=== PATIENT | female | born 1945 | race Caucasian/White ===

== ENCOUNTER 2016-07-20 06:01 | Inpatient (IN) | payer MEDICARE, OTHER ==
[2016-07-18 11:22] LABS: WBC (NOT ORDERED) (RFLEX) 0 (0-5)
[2016-07-18 12:03] LABS: BASOPHILS 0.4 %; BASOPHILS ABSOLUTE 0.03 10/3/uL (0.0-0.16); EOSINOPHILS 1.7 %; EOSINOPHILS ABSOLUTE 0.14 10/3/uL (0.0-0.53); HEMATOCRIT 41.3 % (36.0-48.0); HEMOGLOBIN 14.5 g/dL (12.0-16.0); IMMATURE GRANULOCYTES 0.2 %; IMMATURE GRANULOCYTES ABSOLUTE 0.02 10/3/uL (0.0-0.11); LYMPHOCYTES 20.4 %; LYMPHOCYTES ABSOLUTE 1.65 10/3/uL (0.67-4.30); MEAN CORPUS HGB CONC 35.1 g/dL (32.0-36.0); MEAN CORPUSCULAR HEMOGLOB 28.3 pg (26.0-34.0); MEAN CORPUSCULAR VOLUME 80.5 fL (80-100); MEAN PLATELET VOLUME 10.9 fL (9.2-13.0); MONOCYTES 7.2 %; MONOCYTES ABSOLUTE 0.58 10/3/uL (0.21-1.20); NEUTROPHILS 70.1 %; NEUTROPHILS ABSOLUTE 5.65 10/3/uL (2.02-8.40); PLATELET COUNT 223 10/3/uL (150-400); RBC DISTRIBUTION WIDTH 13.8 % (12.0-16.0); RED CELL COUNT 5.13 10/6/uL (4.0-5.6); WHITE BLOOD CELLS 8.1 10/3/uL (4.5-10.5)
[2016-07-18 12:04] LABS: MANUAL DIFF NO %
[2016-07-18 12:09] LABS: INTERNATIONAL NORMAL RATI 0.9 UNITS (-); PROTIME (NOT ORD) 12.5 SEC (12.0-14.5)
[2016-07-18 12:19] LABS: A/G RATIO 1.1 (0.7-1.9); ALBUMIN 3.6 G/DL (3.5-5.0); BUN (BLOOD UREA NITROGEN) 21 MG/DL (6-23); CALCIUM, SERUM 9.1 MG/DL (8.5-10.4); CHLORIDE, SERUM 98 MMOL/L (96-112); CO2 (CARBON DIOXIDE) 34 MMOL/L (24-34); GFR AFRICAN AMERICAN 67 ML/MIN (>=60); GFR NON AFRICAN AMERICAN 57 ML/MIN (>=60); GLOBULIN 3.3 G/DL (2.5-4.1); GLUCOSE, SERUM 167 MG/DL (60-99); SGOT(AST) 37 U/L (5-40); SGPT(ALT) 67 U/L (5-65); SODIUM, SERUM 139 MMOL/L (135-148); TOTAL BILIRUBIN 0.5 MG/DL (0-1.2); TOTAL PROTEIN 6.9 G/DL (6.0-8.5)
[2016-07-18 12:25] LABS: ALKALINE PHOSPHATASE 129 U/L (45-117)
[2016-07-18 13:53] LABS: ASCORBIC ACID (UR NOT ORDER) NEG (NEG); BILIRUBIN, URINE NEGATIVE (NEG); KETONE, URINE NEGATIVE (NEG); LEUKOCYTE ESTERASE(NOT OR NEG (NEG)
--- NOTE | ~2016-07-20 | HP ---
History And Physical [facility] [address] [place]. [address] NAME: VIRGILIO ANDRADE : 47 STATUS : DIS IN PAT#: [id number] AGE: 70 ADM/REG DATE : 07/20/16 MR#: [id number] REPORT SERV DATE: 09/27/16 DICTATED BY: MAURICE MORALES DATE: 09/27/16 REPORT STATUS : Draft TRANSCRIBED BY: MODL DATE: 09/27/16 DATE OF ADMISSION: 07/20/2016 HISTORY OF PRESENT ILLNESS: Ms. Andrade is a 70-year-old patient who has been referred by Dr. Duncan Cortez with a diagnosis of right upper lobe lung cancer, biopsy-proven to be adenocarcinoma. The patient had a history of breast cancer in the past and had bilateral mastectomies, which she had never had any radiation therapy. She did have chemotherapy after first mastectomy in 1998. She is now followed by Dr. Cortez with COPD and she was found to have biopsy-proven adenocarcinoma of the right upper lobe. Her pulmonary function testing had been adequate to tolerate upper lobectomy. The patient had a cardiac workup by Dr. Tang, and she did show no signs of any coronary artery disease. By the way, her FEV1 is 2.2. PAST MEDICAL HISTORY: Significant for that listed in the history of present illness. She had no previous open cardiac or thoracic surgery. She had history of hypertension, diabetes mellitus, hyperlipidemia. FAMILY HISTORY: Her family history was negative for any history of lung cancer. SOCIAL HISTORY: Negative for tobacco or ethanol use. REVIEW OF SYSTEMS: Significant only for those listed in the history of present illness. PHYSICAL EXAMINATION: VITAL SIGNS: The patient is afebrile. Blood pressure 160/90, heart rate 75, and oxygen saturation is 96% on room air. She is 68 inches tall and 208 pounds in weight. GENERAL: She was in no acute distress. Normal constitution. Alert, oriented x3. NEUROLOGICAL: Intact. NECK: No bruits noted in her neck. No adenopathy of the neck. CHEST: Had breath sounds bilaterally without obvious wheeze or rale. She had regular rhythm. No murmur noted. She had bilateral mastectomy scar, which are well healed. She had mild edema in her left upper extremity. Her abdomen is soft, nontender without masses. EXTREMITIES: Warm and dry. : Normal examination. SKIN: Showed no obvious rash. IMAGING: The CT scan of the chest by my examination demonstrated right upper lobe lung mass, spiculated, consistent with carcinoma. She had no obvious abnormal adenopathy in the mediastinum. She had no other abnormalities of her other lung vizcaino. IMPRESSION: At this time is adenocarcinoma of the right upper lobe of the lung, and the plan is to proceed with right thoracotomy, right upper lobectomy with mediastinal lymphadenectomy. History And Physical [address] [address] NAME: VIRGILIO ANDRADE : 47 STATUS : DIS IN PAT#: [id number] AGE: 70 ADM/REG DATE : 07/20/16 MR#: [id number] REPORT SERV DATE: 09/27/16 DICTATED BY: MAURICE MORALES DATE: 09/27/16 REPORT STATUS : Draft TRANSCRIBED BY: SORAYA DATE: 09/27/16 SIRI/SORAYA Maurice Morales M.D. / [id number] CC: Coby Garcia M.D.
--- NOTE | ~2016-07-20 | CN ---
Consultation Report [facility] [address] [place]. [address] NAME: VIRGILIO ANDRADE : 47 STATUS : ADM IN PAT#: [id number] AGE: 70 ADM/REG DATE : 07/20/16 MR#: [id number] REPORT SERV DATE: 07/24/16 DICTATED BY: WU CASILLAS DATE: 07/24/16 REPORT STATUS : Draft TRANSCRIBED BY: MODL DATE: 07/24/16 CARDIOLOGY CONSULTATION DATE OF CONSULTATION: 07/24/2016 REASON FOR CONSULTATION: Atrial fibrillation. HISTORY OF PRESENT ILLNESS: Ms. Andrade is a pleasant 70-year-old woman recently diagnosed with a right upper lobe lung CA. She underwent a right upper lobe resection by Dr. Maurice Morales. Prior to her undergoing surgery, she had a cardiac workup performed by Dr. Tang, which showed cardiac structure and function to be normal. She had no history of coronary artery disease. She has no history of atrial fibrillation or any other arrhythmias. The surgery was performed on 07/20, and today, she suddenly went into atrial fibrillation with rapid ventricular response. The patient was started on IV Cardizem. Her rate is being well controlled. PAST MEDICAL HISTORY: Notable for diabetes; hypertension; right upper lobe lung CA, status post right upper lobe resection on this admission. HOME MEDICATIONS: Include amlodipine, albuterol, Bumex, Nexium, Amaryl, lisinopril, metformin, Lopressor, potassium, Requip. FAMILY HISTORY: Noncontributory. Negative for premature coronary artery disease or sudden cardiac . SOCIAL HISTORY: Tobacco abuse. Negative for alcohol. REVIEW OF SYSTEMS: As noted above. All other systems reviewed and negative. PHYSICAL EXAMINATION: VITAL SIGNS: Blood pressure of 128/60; pulse in the 90s in atrial fibrillation on Cardizem, rate previously was 130 beats per minute; respirations 18. GENERAL: Well developed, well nourished. HEENT: No icterus. Good dentition. NECK: Supple. No masses or thyromegaly LUNGS: Decreased lung sounds at the right apex. COR: Irregularly irregular rhythm. ABD: Soft, nondistended, nontender, no hepatosplenomegaly. EXT: No clubbing, cyanosis or edema. Peripheral pulses 2+/=bilaterally. SKIN: Warm and dry. No visible lesions. MS: Chest wall without deformity, no obvious clavicular fractures. NEURO/PSYCH: Oriented X3. No anxiety or depression. Consultation Report [facility] [id number] [facility] [address] NAME: VIRGILIO ANDRADE : 47 STATUS : ADM IN PAT#: [id number] AGE: 70 ADM/REG DATE : 07/20/16 MR#: [id number] REPORT SERV DATE: 07/24/16 DICTATED BY: WU CASILLAS DATE: 07/24/16 REPORT STATUS : Draft TRANSCRIBED BY: SORAYA DATE: 07/24/16 IMPRESSION: The patient with new onset atrial fibrillation occurring in the setting of lung cancer, status post resection. She is under some stress due to pain associated with the chest tube. She has a lingering pneumothorax. I would recommend that she begin on intravenous heparin. We can discontinue it to pull the chest tube and then restart a novel anticoagulant after the chest tube has been pulled. I would additionally recommend that we begin an antiarrhythmic agent as I feel she has a very high risk of recurrence of atrial fibrillation if she were to undergo cardioversion. I have recommended sotalol 80 mg twice a day. We will lower her metoprolol dose from 100 mg twice a day to 50 mg twice a day. Her renal function is normal. Her underlying sinus rates are in the 65-80 beat per minute range, so she would appear to be able to take a starting dose of sotalol. If she remains in atrial fibrillation by approximately two days, then I would recommend cardioversion to sinus rhythm. As we are starting intravenous heparin within a few hours of the onset of atrial fibrillation, I believe it would be reasonable to proceed with cardioversion without transesophageal echocardiogram. Once she is back in sinus rhythm, we will check an EKG to measure her QT interval in relation to the sotalol administration. JUAN MANUEL/SORAYA Wu Casillas M.D. / [id number] CC: Coby Garcia M.D.
--- NOTE | ~2016-07-20 | DS ---
Discharge Summary [facility] [address] [place]. [address] NAME: VIRGILIO NGUYEN : 47 STATUS : DIS IN PAT#: [id number] AGE: 70 ADM/REG DATE : 07/20/16 MR#: [id number] REPORT SERV DATE: 09/28/16 DICTATED BY: MAURICE MORALES DATE: 09/27/16 REPORT STATUS : Draft TRANSCRIBED BY: MODL DATE: 09/27/16 ADMISSION DATE: 07/20/2016 DISCHARGE DATE: 07/27/2016 PERTINENT HISTORY AND HOSPITAL COURSE: The patient is a 70-year-old female, followed closely by Dr. Luzmaria Cortez for her pulmonary diseases, was found to have a right upper lobe lung mass. A CT directed biopsy was performed, which was consistent with adenocarcinoma of the right upper lobe. The patient was referred for right upper lobectomy. Her past history was significant for a mastectomy on the left side in 1998. She has had cardiac evaluation by her clinical pharmacy coordinator and had been cleared for her lobectomy. She was admitted to the hospital and taken to the operating room on the date of 07/20/2016, at which time, she underwent right thoracotomy for right upper lobectomy with mediastinal lymphadenectomy. She tolerated the procedure well. Two chest tubes were placed and she was taken to the intensive care unit. In the intensive care unit, she was watched closely. She had been extubated in the recovery room. She did have a history of COPD and required Pulmonary followup and treatment due to her severe COPD after lobectomy. Slowly, she was able to have her chest tubes removed. She began slowly increasing p.o. intake and ambulation. She had ups and downs with respect to her COPD, oxygenation, and bronchospasms. She did not have any cardiac issues. She did not have really any surgical issues, it clearly was a prolonged hospitalization due to her weak pulmonary function. She did, however, eventually heal her wound. She was able to be stabilized at the ICU and onto the telemetry floor, and after a prolonged course, she was able to be discharged out of the hospital. At that time, she was still on multiple bronchodilators and oxygen supplementation. DISCHARGE DIAGNOSIS: Adenocarcinoma, right upper lobe of lung. OPERATIVE PROCEDURE PERFORMED: Right upper lobectomy with mediastinal lymphadenectomy via thoracotomy. Other complicating factors were hypertension, hyperlipidemia, chronic obstructive pulmonary disease, diabetes mellitus. Her followup instruction will be to see us and three weeks postoperatively see Dr. Cortez and two weeks postoperatively followed closely with her clinical pharmacy coordinator, Dr. Tang. SIRI/SORAYA Maurice Morales M.D. / [id number] CC: Maurice Morales M.D. Discharge Summary [address] [address] NAME: VIRGILIO NGUYEN : 47 STATUS : DIS IN PAT#: [id number] AGE: 70 ADM/REG DATE : 07/20/16 MR#: [id number] REPORT SERV DATE: 09/28/16 DICTATED BY: MAURICE MORALES DATE: 09/27/16 REPORT STATUS : Draft TRANSCRIBED BY: SORAYA DATE: 09/27/16 Asia Sanderson M.D.
--- NOTE | ~2016-07-20 | OP ---
Record Of Operation [facility] [address] [place]. [address] NAME: VIRGILIO NGUYEN : 47 STATUS : ADM IN PAT#: [id number] AGE: 70 ADM/REG DATE : 07/20/16 MR#: [id number] REPORT SERV DATE: 07/20/16 DICTATED BY: MAURICE MORALES DATE: 07/20/16 REPORT STATUS : Draft TRANSCRIBED BY: MODL DATE: 07/20/16 DATE OF PROCEDURE: 07/20/2016 PREOPERATIVE DIAGNOSIS: Carcinoma of right upper lobe of the lung, biopsy-proven. POSTOPERATIVE DIAGNOSIS: Carcinoma of right upper lobe of the lung, biopsy-proven. OPERATIVE PROCEDURE: Right thoracotomy with right upper lobectomy with mediastinal lymphadenectomy. ANESTHESIA: General endotracheal anesthesia, AA. TUBES: Chest tubes placed were 2 in the right pleural space. PERTINENT HISTORY: The patient is a 70-year-old female, referred by Dr. Reed with a lesion in the right upper lobe of the lung, which was biopsy proven to be carcinoma. OPERATIVE FINDINGS: The patient had lesion deep within the right upper lobe. No suspicious mediastinal lymphadenopathy was noted. The only nodes to be excised were level 4, level 10, and level 11. OPERATIVE PROCEDURE: The patient was taken to the operating room, placed in supine position. Anesthesia was obtained. The patient was prepped and draped in the usual sterile fashion. The patient had been turned to a right thoracotomy position. A right lateral thoracotomy incision was then made. The chest wall muscles were divided with electrocautery. The 6th intercostal space was entered. A retractor was placed. The adhesions were lysed with electrocautery. The pulmonary hilum was then incised superiorly, anteriorly, and inferiorly. The inferior pulmonary ligament was then divided. The superior venous branches to the apical segment of the upper lobe were triply ligated and divided. The arterial branches to the anterior and apical segment were then triply ligated and divided. The minor fissure was then completed with Endo-BOSTON stapling device. The venous branches from the superior pulmonary vein from the upper lobe were then divided with the Endo-BOSTON vascular stapling device. The major fissure was then completed with an Endo-BOSTON stapling device. The major fissure was entered and the pulmonary artery was identified. The arterial branches to the posterior segment of the upper lobe were triply ligated and divided. The venous drainage to the middle lobe was preserved. The middle lobar pulmonary arterial branches were preserved. The upper lobe bronchus was then dissected and stapled with a TA stapling device. This was then divided with a #15 blade and the specimen was sent to Pathology. Pathology noted that the bronchial margins were clear of any tumor. No air leaks were noted and the bronchial margin was clear up to 40 mmHg pressure with no air leak. Hemostasis was noted. The space was irrigated with copious amount of sterile water. A trauma drill was used to drill 4 holes through the 6th rib. #2 pericostal sutures were placed through those holes and passed through the 5th rib. A 32-Anguillan chest tube was placed anteriorly and 32-Anguillan chest tube was placed posteriorly. The intercostal space was then approximated and remnant of middle lobe and lower lobe was fully expanded. No air leaks were noted. The chest muscles were closed in two-layer fashion with #1 [employer] Record Of Operation [address] [address] NAME: VIRGILIO NGUYEN : 47 STATUS : ADM IN [facility]#: [id number] AGE: 70 ADM/REG DATE : 07/20/16 MR#: [id number] REPORT SERV DATE: 07/20/16 DICTATED BY: MAURICE MORALES DATE: 07/20/16 REPORT STATUS : Draft TRANSCRIBED BY: SORAYA DATE: 07/20/16 suture, closing the latissimus dorsi and the serratus anterior. The skin and subcutaneous tissue were closed in two-layer fashion. Sterile dressing was applied. The patient tolerated the procedure well, was extubated in the operating room, and taken to the recovery room in stable condition. SIRI/SORAYA Maurice Morales M.D. / [id number] CC: Maurice Morales M.D.
[~2016-07-20 06:01] MED LIST: ALLEGRA180 PO; AMARYL2 PO; ASAB PO; BREO ELLIPTA INH; BUM1 PO; CENTRUM PO; CINNAMONPO PO; CYMBALTA30 PO; D-MANNOSE PO; GLUCPH8 PO; KLOR-CON 1010 MEQ PO; LISINOPRIL40 MG PO; LOP100 PO; MACROBID PO; MAGOX4 PO; MAX25 PO; METHOC500B PO; NEXIUM20 M1 PO; NEXIUM40 PO; NORV10 PO; PREVAGEN D PO; PROAIR HFA INH; PROZAC40 MG PO; REQUIP1 PO; VITAMIN C PO; VITAMIN D31000 UNIT PO; ZYRTEC ALLGY10 MG PO; [UNRECOGNIZED DRUG - OTHER] PO
[2016-07-20 12:22] LABS: BASOPHILS 0.3 %; BASOPHILS ABSOLUTE 0.03 10/3/uL (0.0-0.16); EOSINOPHILS 0.6 %; EOSINOPHILS ABSOLUTE 0.07 10/3/uL (0.0-0.53); HEMATOCRIT 38.3 % (36.0-48.0); HEMOGLOBIN 13.3 g/dL (12.0-16.0); IMMATURE GRANULOCYTES 0.3 %; IMMATURE GRANULOCYTES ABSOLUTE 0.03 10/3/uL (0.0-0.11); LYMPHOCYTES ABSOLUTE 1.11 10/3/uL (0.67-4.30); MEAN CORPUS HGB CONC 34.7 g/dL (32.0-36.0); MEAN CORPUSCULAR HEMOGLOB 28.2 pg (26.0-34.0); MEAN CORPUSCULAR VOLUME 81.3 fL (80-100); MEAN PLATELET VOLUME 10.3 fL (9.2-13.0); MONOCYTES 2.3 %; MONOCYTES ABSOLUTE 0.26 10/3/uL (0.21-1.20); NEUTROPHILS 86.5 %; NEUTROPHILS ABSOLUTE 9.63 10/3/uL (2.02-8.40); PLATELET COUNT 237 10/3/uL (150-400); RBC DISTRIBUTION WIDTH 13.8 % (12.0-16.0); RED CELL COUNT 4.71 10/6/uL (4.0-5.6); WHITE BLOOD CELLS 11.1 10/3/uL (4.5-10.5)
[2016-07-20 12:27] LABS: MANUAL DIFF NO %
[2016-07-20 12:31] LABS: BUN (BLOOD UREA NITROGEN) 21 MG/DL (6-23); CALCIUM, SERUM 8.1 MG/DL (8.5-10.4); CHLORIDE, SERUM 101 MMOL/L (96-112); CO2 (CARBON DIOXIDE) 30 MMOL/L (24-34); CREATININE 1.09 MG/DL (0.55-1.02); GFR AFRICAN AMERICAN 60 ML/MIN (>=60); GFR NON AFRICAN AMERICAN 52 ML/MIN (>=60); GLUCOSE, SERUM 205 MG/DL (60-99); POTASSIUM, SERUM 3.9 MMOL/L (3.5-5.3); SODIUM, SERUM 136 MMOL/L (135-148)
[2016-07-21 03:15] LABS: BASOPHILS 0.1 %; BASOPHILS ABSOLUTE 0.02 10/3/uL (0.0-0.16); EOSINOPHILS 0.2 %; EOSINOPHILS ABSOLUTE 0.03 10/3/uL (0.0-0.53); HEMATOCRIT 36.2 % (36.0-48.0); HEMOGLOBIN 12.7 g/dL (12.0-16.0); IMMATURE GRANULOCYTES 0.1 %; IMMATURE GRANULOCYTES ABSOLUTE 0.02 10/3/uL (0.0-0.11); LYMPHOCYTES 7.3 %; LYMPHOCYTES ABSOLUTE 0.98 10/3/uL (0.67-4.30); MEAN CORPUS HGB CONC 35.1 g/dL (32.0-36.0); MEAN CORPUSCULAR HEMOGLOB 28.4 pg (26.0-34.0); MEAN PLATELET VOLUME 9.8 fL (9.2-13.0); MONOCYTES 8.8 %; MONOCYTES ABSOLUTE 1.18 10/3/uL (0.21-1.20); NEUTROPHILS 83.5 %; NEUTROPHILS ABSOLUTE 11.24 10/3/uL (2.02-8.40); PLATELET COUNT 193 10/3/uL (150-400); RBC DISTRIBUTION WIDTH 14.2 % (12.0-16.0); RED CELL COUNT 4.47 10/6/uL (4.0-5.6); WHITE BLOOD CELLS 13.5 10/3/uL (4.5-10.5)
[2016-07-21 03:27] LABS: CALCIUM, SERUM 7.7 MG/DL (8.5-10.4); CHLORIDE, SERUM 102 MMOL/L (96-112); CO2 (CARBON DIOXIDE) 28 MMOL/L (24-34); CREATININE 0.81 MG/DL (0.55-1.02); GFR AFRICAN AMERICAN 86 ML/MIN (>=60); GFR NON AFRICAN AMERICAN 74 ML/MIN (>=60); GLUCOSE, SERUM 195 MG/DL (60-99); POTASSIUM, SERUM 3.6 MMOL/L (3.5-5.3); SODIUM, SERUM 138 MMOL/L (135-148)
[2016-07-21 03:29] LABS: MANUAL DIFF NO %
[2016-07-21 03:30] LABS: BUN (BLOOD UREA NITROGEN) 16 MG/DL (6-23)
[2016-07-22 04:11] LABS: BASOPHILS 0.2 %; BASOPHILS ABSOLUTE 0.03 10/3/uL (0.0-0.16); EOSINOPHILS 1.8 %; EOSINOPHILS ABSOLUTE 0.28 10/3/uL (0.0-0.53); HEMATOCRIT 37.5 % (36.0-48.0); HEMOGLOBIN 12.9 g/dL (12.0-16.0); IMMATURE GRANULOCYTES 0.2 %; IMMATURE GRANULOCYTES ABSOLUTE 0.03 10/3/uL (0.0-0.11); LYMPHOCYTES 5.5 %; LYMPHOCYTES ABSOLUTE 0.84 10/3/uL (0.67-4.30); MEAN CORPUS HGB CONC 34.4 g/dL (32.0-36.0); MEAN CORPUSCULAR HEMOGLOB 28.1 pg (26.0-34.0); MEAN CORPUSCULAR VOLUME 81.7 fL (80-100); MEAN PLATELET VOLUME 10.2 fL (9.2-13.0); MONOCYTES 7.3 %; MONOCYTES ABSOLUTE 1.12 10/3/uL (0.21-1.20); NEUTROPHILS ABSOLUTE 13.02 10/3/uL (2.02-8.40); PLATELET COUNT 212 10/3/uL (150-400); RBC DISTRIBUTION WIDTH 14.3 % (12.0-16.0); RED CELL COUNT 4.59 10/6/uL (4.0-5.6); WHITE BLOOD CELLS 15.3 10/3/uL (4.5-10.5)
[2016-07-22 04:12] LABS: MANUAL DIFF NO %
[2016-07-22 04:24] LABS: BUN (BLOOD UREA NITROGEN) 12 MG/DL (6-23); CALCIUM, SERUM 8.3 MG/DL (8.5-10.4); CHLORIDE, SERUM 99 MMOL/L (96-112); CO2 (CARBON DIOXIDE) 28 MMOL/L (24-34); CREATININE 0.63 MG/DL (0.55-1.02); GFR AFRICAN AMERICAN 106 ML/MIN (>=60); GFR NON AFRICAN AMERICAN 92 ML/MIN (>=60); GLUCOSE, SERUM 191 MG/DL (60-99); POTASSIUM, SERUM 4.1 MMOL/L (3.5-5.3); SODIUM, SERUM 134 MMOL/L (135-148)
[2016-07-23 05:30] LABS: BASOPHILS 0.3 %; BASOPHILS ABSOLUTE 0.03 10/3/uL (0.0-0.16); EOSINOPHILS 3.4 %; EOSINOPHILS ABSOLUTE 0.36 10/3/uL (0.0-0.53); HEMATOCRIT 37.1 % (36.0-48.0); HEMOGLOBIN 12.7 g/dL (12.0-16.0); IMMATURE GRANULOCYTES 0.2 %; IMMATURE GRANULOCYTES ABSOLUTE 0.02 10/3/uL (0.0-0.11); LYMPHOCYTES 7.9 %; LYMPHOCYTES ABSOLUTE 0.83 10/3/uL (0.67-4.30); MEAN CORPUS HGB CONC 34.2 g/dL (32.0-36.0); MEAN CORPUSCULAR VOLUME 81.7 fL (80-100); MEAN PLATELET VOLUME 10.5 fL (9.2-13.0); MONOCYTES 8.9 %; MONOCYTES ABSOLUTE 0.93 10/3/uL (0.21-1.20); NEUTROPHILS 79.3 %; NEUTROPHILS ABSOLUTE 8.31 10/3/uL (2.02-8.40); PLATELET COUNT 188 10/3/uL (150-400); RBC DISTRIBUTION WIDTH 14.2 % (12.0-16.0); RED CELL COUNT 4.54 10/6/uL (4.0-5.6); WHITE BLOOD CELLS 10.5 10/3/uL (4.5-10.5)
[2016-07-23 05:31] LABS: MANUAL DIFF NO %
[2016-07-23 05:47] LABS: BUN (BLOOD UREA NITROGEN) 11 MG/DL (6-23); CALCIUM, SERUM 8.6 MG/DL (8.5-10.4); CHLORIDE, SERUM 96 MMOL/L (96-112); CREATININE 0.67 MG/DL (0.55-1.02); GFR AFRICAN AMERICAN 104 ML/MIN (>=60); GFR NON AFRICAN AMERICAN 90 ML/MIN (>=60); GLUCOSE, SERUM 162 MG/DL (60-99); POTASSIUM, SERUM 4.3 MMOL/L (3.5-5.3); SODIUM, SERUM 134 MMOL/L (135-148)
[2016-07-23 05:48] LABS: CO2 (CARBON DIOXIDE) 34 MMOL/L (24-34)
[2016-07-24 05:48] LABS: BASOPHILS 0.3 %; BASOPHILS ABSOLUTE 0.02 10/3/uL (0.0-0.16); EOSINOPHILS 5.5 %; EOSINOPHILS ABSOLUTE 0.41 10/3/uL (0.0-0.53); HEMATOCRIT 35.9 % (36.0-48.0); HEMOGLOBIN 12.4 g/dL (12.0-16.0); IMMATURE GRANULOCYTES 0.4 %; IMMATURE GRANULOCYTES ABSOLUTE 0.03 10/3/uL (0.0-0.11); LYMPHOCYTES 9.7 %; LYMPHOCYTES ABSOLUTE 0.72 10/3/uL (0.67-4.30); MEAN CORPUS HGB CONC 34.5 g/dL (32.0-36.0); MEAN CORPUSCULAR HEMOGLOB 27.6 pg (26.0-34.0); MEAN PLATELET VOLUME 10.2 fL (9.2-13.0); MONOCYTES 9.4 %; NEUTROPHILS 74.7 %; NEUTROPHILS ABSOLUTE 5.58 10/3/uL (2.02-8.40); PLATELET COUNT 193 10/3/uL (150-400); RED CELL COUNT 4.49 10/6/uL (4.0-5.6); WHITE BLOOD CELLS 7.5 10/3/uL (4.5-10.5)
[2016-07-24 05:53] LABS: BUN (BLOOD UREA NITROGEN) 12 MG/DL (6-23); CALCIUM, SERUM 8.9 MG/DL (8.5-10.4); CHLORIDE, SERUM 96 MMOL/L (96-112); CO2 (CARBON DIOXIDE) 32 MMOL/L (24-34); CREATININE 0.61 MG/DL (0.55-1.02); GFR AFRICAN AMERICAN 107 ML/MIN (>=60); GFR NON AFRICAN AMERICAN 92 ML/MIN (>=60); GLUCOSE, SERUM 162 MG/DL (60-99); POTASSIUM, SERUM 4.3 MMOL/L (3.5-5.3); SODIUM, SERUM 134 MMOL/L (135-148)
[2016-07-24 06:07] LABS: MANUAL DIFF NO %
[2016-07-24 16:53] LABS: FREE T4 1.69 NG/DL (0.76-1.46)
[2016-07-25 07:19] LABS: PROTIME (NOT ORD) 12.6 SEC (12.0-14.5)
[2016-07-25 07:21] LABS: PARTIAL THROMBO TIME 34.1 SEC (22.5-37.2)
[2016-07-26 04:50] LABS: PROTIME (NOT ORD) 12.6 SEC (12.0-14.5)
[2016-07-27 04:57] LABS: INTERNATIONAL NORMAL RATI 1.2 UNITS (-)
[2016-07-27 04:58] LABS: PARTIAL THROMBO TIME 49.3 SEC (22.5-37.2)
[2016-07-27 04:59] LABS: PROTIME (NOT ORD) 14.8 SEC (12.0-14.5)
[2016-07-27] MEDS ORDERED: COZ50 PO (12:10)
[2016-07-27] MEDS ORDERED: NORCO1 TA1 PO (12:11)
[2016-07-27] MEDS ORDERED: COUMADIN6 MG PO (12:11)
== END 2016-07-27 14:34 | disposition home or self-care (01) | DRG 164 ==
LOC: SDC/OF 06:01 → PACU 12:05 → CVICU 13:35 → 5NO 07-22 18:25
PROVIDERS: Nurse Practitioner Family; Thoracic Surgery (Cardiothoracic Vascular Surgery)
PROC: 0BTC0ZZ Resection of Right Upper Lung Lobe, Open Approach (ICD-10-PCS; principal; 2016-07-20 07:45)
PROC: 07B70ZZ Excision of Thorax Lymphatic, Open Approach (ICD-10-PCS; 2016-07-20 07:45)
DX: C34.11 Malignant neoplasm of upper lobe, right bronchus or lung (principal); J95.811 Postprocedural pneumothorax; I48.0 Paroxysmal atrial fibrillation; I97.89 Other postprocedural complications and disorders of the circulatory system, not elsewhere classified; I10 Essential (primary) hypertension; E11.9 Type 2 diabetes mellitus without complications; F17.210 Nicotine dependence, cigarettes, uncomplicated; F32.9 Major depressive disorder, single episode, unspecified
CPT/HCPCS: 36415; 71010; 71020; 80048; 80053; 81001; 82330; 82803; 82947; 82962; 83036; 83735; 84132; 84295; 84439; 84443; 85014; 85025; 85610; 85730; 86850; 86900; 86901; 86920; 87641; 88305; 88309; 88331; 93005; 94640; A9270-GY; C1751; C1769; G0463; J0690; J1885; J1940; J2250; J2300; J2370; J2405; J2710; J3010